=== PATIENT | female | born 1985 | race Caucasian/White ===

== ENCOUNTER 2017-03-05 00:46 | Emergency (ER) | payer MEDICAID ==
[~2017-03-05] VITALS: Ht 167.6 cm; Wt 101.8 kg
[~2017-03-05 00:46] MED LIST: EXCEDRIN1 TAB PO; PROAIR HFA0.09 MG/AC IH
[2017-03-05 00:48] VITALS: TEMP 98.8
[2017-03-05] MEDS ORDERED: KLONOPIN 1MG1 MG PO (00:56)
[2017-03-05] MEDS ORDERED: PRISTIQ100 MG PO (00:57)
[2017-03-05] MEDS ORDERED: CLARITIN 1010 MG/TAB PO (00:57)
[2017-03-05] MEDS ORDERED: ABILIFY20 MG PO (00:57)
[2017-03-05 01:27] LABS: BASO # 0.1 (0.0-0.2); BASO % 0.7 % (0.0-2.0); EOS # 0.3 (0.0-0.7); EOS % 3.3 % (0-4.0); GRAN # 6.5 (1.4-6.5); GRAN % 62.5 % (42.2-75.2); HEMATOCRIT 43.7 % (37.0-47.0); HEMOGLOBIN 14.8 g/dl (12.5-16.0); LYMPH # 2.7 (1.2-3.4); LYMPH % 26.4 % (20.0-51.0); MEAN CELL VOLUME 94 fl (80.0-100.0); MEAN CORPUSCULAR HEMOGLOBIN 32 pg (27.0-31.0); MEAN CORPUSCULAR HGB CONC 34 g/dl (33.0-37.0); MEAN PLATELET VOLUME 10.8 fl (7.4-10.4); MONO # 0.7 (0.1-0.6); MONO % 6.8 % (1.7-9.3); PLATELET COUNT 229 K/mm3 (130-400); RED BLOOD COUNT 4.63 M/mm3 (4.10-5.30); REDCELL DISTRIBUTION WIDTH-CV 14.1 % (11.5-14.5); WHITE BLOOD COUNT 10.4 K/mm3 (4.8-10.8)
[2017-03-05 01:41] LABS: ADJUSTED CALCIUM 9.3 mg/dL (8.4-10.2); ALBUMIN 3.8 gm/dL (3.5-5.0); BILIRUBIN,TOTAL 0.3 mg/dL (0.0-1.0); C-REACTIVE PROTEIN 1.4 mg/dL (0.0-0.9); CALCIUM 9.1 mg/dL (8.4-10.2); CREATININE, serum 0.94 mg/dL (0.52-1.25); POTASSIUM 3.6 mmol/L (3.4-5.0); TOTAL PROTEIN 6.7 gm/dL (6.4-8.2)
[2017-03-05 01:47] LABS: PH 5 (5-8); URINE APPEARANCE Clear; URINE BACTERIA None Seen /hpf; URINE BILIRUBIN Negative (NEGATIVE); URINE BLOOD Negative (NEGATIVE); URINE COLOR Yellow; URINE GLUCOSE Negative (NEGATIVE); URINE KETONE Negative (NEGATIVE); URINE RBC 0-2 /hpf; URINE UROBILINOGEN Negative (NEGATIVE); URINE WBC 0-2 /hpf
[2017-03-05 01:55] LABS: PROLACTIN 13.1 ng/mL (3.0-18.6)
[2017-03-05] MEDS ORDERED: PRILOSEC 20MG20 MG PO (02:13)
[2017-03-05 02:20] VITALS: BP 116/59; PULSE 92
== END 2017-03-05 02:30 | disposition home or self-care (01) ==
LOC: COL.ER 00:46
PROVIDERS: Family Medicine
DX: K29.70 Gastritis, unspecified, without bleeding (principal); J45.909 Unspecified asthma, uncomplicated; F31.9 Bipolar disorder, unspecified; F17.210 Nicotine dependence, cigarettes, uncomplicated; Z90.49 Acquired absence of other specified parts of digestive tract; Z90.89 Acquired absence of other organs; Z98.890 Other specified postprocedural states
CPT/HCPCS: C9113; J2060; J2405; J7030

== ENCOUNTER 2017-08-02 09:47 | Emergency (ER) | payer OTHER ==
[~2017-08-02] VITALS: Ht 167.6 cm; Wt 109.1 kg
[~2017-08-02 09:47] MED LIST changes: +ABILIFY20 MG PO; +CLARITIN 1010 MG/TAB PO; +KLONOPIN 1MG1 MG PO; +PRILOSEC 20MG20 MG PO; +PRISTIQ100 MG PO
[2017-08-02 09:51] VITALS: BP 114/58; PULSE 85; TEMP 98.7
[2017-08-02] MEDS ORDERED: PREDNISONE20 MG PO (10:56)
[2017-08-02] MEDS ORDERED: VOLTAREN 75 DR75 MG PO (10:56)
== END 2017-08-02 11:24 | disposition home or self-care (01) ==
LOC: COL.ER 09:47
DX: S93.601A Unspecified sprain of right foot, initial encounter (principal); J45.909 Unspecified asthma, uncomplicated; V49.40XA Driver injured in collision with unspecified motor vehicles in traffic accident, initial encounter; Y92.410 Unspecified street and highway as the place of occurrence of the external cause
CPT/HCPCS: J7512

== ENCOUNTER → 2017-08-04 | Outpatient (CLI) | payer OTHER ==
[~2017-08-04] MED LIST changes: +PREDNISONE20 MG PO; +VOLTAREN 75 DR75 MG PO
== END ==
LOC: COL.RAD 13:15
DX: S93.611A Sprain of tarsal ligament of right foot, initial encounter (principal); S92.241A Displaced fracture of medial cuneiform of right foot, initial encounter for closed fracture; S96.811A Strain of other specified muscles and tendons at ankle and foot level, right foot, initial encounter

== ENCOUNTER → 2017-10-18 | Outpatient (CLI) | payer OTHER | LOC: COL.RAD 09:54 | DX: R60.0 Localized edema (principal) ==

== ENCOUNTER → 2019-03-28 | Outpatient (CLI) | payer OTHER, MEDICAID | LOC: ZCOL.LAB 17:57 | DX: L02.611 Cutaneous abscess of right foot (principal); Z98.890 Other specified postprocedural states ==

== ENCOUNTER 2019-06-07 06:05 | Day surgery (SDC) | payer MEDICAID ==
[~2019-06-07] VITALS: Ht 172.7 cm; Wt 119.5 kg
[2019-06-07] VITALS (10 sets, daily range): BP systolic 72–131; BP diastolic 42–73; PULSE 57–92; TEMP 97.6–985.5
[2019-06-07] MEDS ORDERED: GLUCOPHAGE500 MG/TAB PO (06:36)
--- NOTE | 2019-06-07 08:40 | NUR ---
TO BAY 6 PER CART FROM ENDOSCOPY. AMBULATED TO RECLINER WITH ASSIST AND TOLERATED WELL. PATIENT C/O ABDOMINAL CRAMPING AND SHIVERING. RECEIVED SEVERAL WARM BLANKETS AND RECLINED BACK FOR COMFORT.
--- NOTE | 2019-06-07 08:45 | NUR ---
PATIENT SLEEPING QUIETLY
--- NOTE | 2019-06-07 09:00 | NUR ---
PATIENT AWAKENS EASILY AND FALLS BACK TO SLEEP.
--- NOTE | 2019-06-07 09:15 | NUR ---
CONTINUES TO SLEEP.
--- NOTE | 2019-06-07 09:35 | NUR ---
TURNED SELF TO L SIDE AND SLEEPING QUIETLY
--- NOTE | 2019-06-07 10:01 | NUR ---
PATIENT SLEEPING AND SNORING. NO SIGNS OF DISTRESS,
--- NOTE | 2019-06-07 10:30 | NUR ---
CONTINUES TO SLEEP.
--- NOTE | 2019-06-07 11:05 | NUR ---
AWAKE AND TALKING WITH STAFF RECEIVED WATER AND TAKING SIPS
--- NOTE | 2019-06-07 11:18 | NUR ---
RECEIVED CASEY AND JEFFREY
--- NOTE | 2019-06-07 11:35 | NUR ---
DR FRAIRE INTO TALK WITH PATIENT. AMBULATED TO BATHROOM AND VOIDED. ATE 100% AND TOLERATED WELL.
--- NOTE | 2019-06-07 12:00 | NUR ---
DISCONTINED IV AND INT- CATHETER INTACT RECEIVED DISCHARGE INSTRUCTIONS AND VERBALIZED UNDERSTANDING PATIENT WAITING FOR RIDE.
--- NOTE | 2019-06-07 13:42 | NUR ---
WAITING FOR BOYFRIEND FOR RIDE. ( ACCIDENT ON ROUTE AND DELAY IN ARRIVING TO HOSPIAL)
--- NOTE | 2019-06-07 13:53 | NUR ---
DISCHARGED PER WC BY NURSING STAFF TO PRIVATE CAR IN CARE OF BOYFRIEND-CHILO.
== END 2019-06-07 13:55 | disposition home or self-care (01) ==
LOC: SDCO 06:05
DX: K21.9 Gastro-esophageal reflux disease without esophagitis (principal); E66.9 Obesity, unspecified; J45.909 Unspecified asthma, uncomplicated; K58.9 Irritable bowel syndrome, unspecified; Z90.49 Acquired absence of other specified parts of digestive tract; F17.210 Nicotine dependence, cigarettes, uncomplicated; G89.29 Other chronic pain; F41.9 Anxiety disorder, unspecified; F32.9 Major depressive disorder, single episode, unspecified; E28.2 Polycystic ovarian syndrome; G43.909 Migraine, unspecified, not intractable, without status migrainosus; Z88.1 Allergy status to other antibiotic agents; Z88.8 Allergy status to other drugs, medicaments and biological substances; Z79.82 Long term (current) use of aspirin
CPT/HCPCS: J2704; J7030

== ENCOUNTER → 2020-10-29 | Outpatient (CLI) | payer MEDICAID ==
[~2020-10-29] MED LIST changes: +GLUCOPHAGE500 MG/TAB PO
== END ==
LOC: COL.RAD 08:38
DX: M79.671 Pain in right foot (principal)
CPT/HCPCS: J3301; Q9967

== ENCOUNTER → 2022-03-23 | Outpatient (CLI) | payer MEDICAID ==
[2022-03-23 10:11] LABS: HEMATOCRIT 43.3 % (37.0-47.0); HEMOGLOBIN 14.8 g/dl (12.5-16.0); MEAN CELL VOLUME 92 fl (80.0-100.0); MEAN CORPUSCULAR HEMOGLOBIN 31 pg (27-31); MEAN CORPUSCULAR HGB CONC 34 g/dl (33.0-37.0); MEAN PLATELET VOLUME 10.2 fl (7.4-10.4); PLATELET COUNT 254 K/mm3 (130-400); RED BLOOD COUNT 4.73 M/mm3 (4.10-5.30); REDCELL DISTRIBUTION WIDTH-CV 13.4 % (11.5-14.5)
[2022-03-23 10:22] LABS: CALCIUM 9.7 mg/dL (8.4-10.2); CREATININE, serum 0.87 mg/dL (0.57-1.11); POTASSIUM 4.1 mmol/L (3.5-4.5)
== END ==
LOC: COL.LAB 09:36
PROVIDERS: Internal Medicine Interventional Cardiology
DX: R60.0 Localized edema (principal)

== ENCOUNTER 2024-04-22 20:23 | Emergency (ER) | payer MEDICAID ==
[~2024-04-22] VITALS: Ht 172.7 cm; Wt 113.6 kg
[~2024-04-22 20:23] MED LIST changes: +BENADRYL25 M2 PO; +BOTOX 100100 U/VIAL IM; +CELEBREX 200MG200 MG PO; -CLARITIN 1010 MG/TAB PO; +CRESTOR5 MG PO; +DEPO-PROVER150 MG/M1 IM; +FARXIGA10 PO; +HUMIRA PEN40 MG/0.4 SQ; +LASIX 20MG TABL20 MG PO; +MINIPRESS2 MG PO; +PRIL40 PO; +PRINIVIL5 MG PO; +PRISTIQ 50 MG T50 MG PO; -PRISTIQ100 MG PO; +SINGULAIR 110 MG/TAB PO; +TRELEGY ELLIPT1 EAC1 IH; +TRILEPTAL 300M300 MG PO; +TRULICITY3 MG/0.5 M SQ; +VITAMIN D362.5 MC1 PO; +ZYRTEC 10MG10 MG PO
[2024-04-22 20:29] VITALS: BP 111/70; TEMP 98.4
[2024-04-22 22:09] LABS: HEMATOCRIT 45.2 % (37.0-47.0); MEAN CELL VOLUME 97 fl (80.0-100.0); MEAN CORPUSCULAR HEMOGLOBIN 32 pg (27-31); MEAN CORPUSCULAR HGB CONC 33 g/dl (33.0-37.0); MEAN PLATELET VOLUME 10.4 fl (7.4-10.4); PLATELET COUNT 260 K/mm3 (130-400); RED BLOOD COUNT 4.66 M/mm3 (4.10-5.30); REDCELL DISTRIBUTION WIDTH-CV 13.6 % (11.5-14.5)
[2024-04-22 22:14] LABS: INR 1.2 (0.8-3.0); PROTHROMBIN TIME 12.5 SECONDS (9.7-12.8)
[2024-04-22] MEDS ORDERED: oxyCODONE/Acetaminophen 5-325 MG TAB PO ONE (22:15)
[2024-04-22 22:24] LABS: CALCIUM 9.7 mg/dL (8.4-10.2); CREATININE, serum 0.83 mg/dL (0.57-1.11); POTASSIUM 3.8 mEq/L (3.5-4.5)
[2024-04-23 00:08] VITALS: PULSE 67
== END 2024-04-23 00:08 | disposition home or self-care (01) ==
LOC: COL.ER 20:23
PROVIDERS: Emergency Medicine
DX: M79.604 Pain in right leg (principal); F17.290 Nicotine dependence, other tobacco product, uncomplicated
CPT/HCPCS: J1650

== ENCOUNTER → 2024-04-24 | Outpatient (CLI) | payer MEDICAID | LOC: COL.RAD 04-23 05:11 | DX: M79.604 Pain in right leg (principal) ==